=== PATIENT | female | born 1980 | race Caucasian/White ===

== ENCOUNTER 2021-05-30 06:09 | Day surgery (SDC) | payer SELFPAY ==
[2021-05-23 18:29] VITALS: BMI 35.4
[~2021-05-30 06:09] MED LIST: BACITRACIN 15 GM TUBE TOPICAL OINTMENT TP ONE; NITROGLYCERIN 2% OINTMENT - 1GM PACKET TD ONE; ceFAZolin SODIUM 1 GM VIAL IVPB ONE
[2021-05-30] MEDS ORDERED: EPINEPHrine/PF 1 MG/1 ML (1:1,000) AMPULE ONE (07:19)
[2021-05-30] MEDS ORDERED: MIDAZOLAM HCL 2 MG/2 ML SINGLE DOSE VIAL ONE (07:26)
[2021-05-30] MEDS ORDERED: fentaNYL CITRATE 250 MCG/5 ML VIAL ONE (07:26)
[2021-05-30] MEDS ORDERED: PROPOFOL 20 ML ONE (07:41)
[2021-05-30] MEDS ORDERED: HEPARIN NA (PORCINE) 5,000 UNITS/ML 1ML VIAL ONE (07:47)
[2021-05-30] MEDS ORDERED: BUPIVACAINE HCL/PF 0.25% (2.5MG/ML) 10 ML VIAL ONE (07:55)
[2021-05-30] MEDS ORDERED: BUPIVACAINE LIPOSOME/PF (EXPAREL) 266 MG/20 ML VIAL ONE (07:56)
[2021-05-30] MEDS ORDERED: ROCURONIUM BROMIDE 50 MG/5 ML SYRINGE ONE ×2 (08:05→09:01)
[2021-05-30] MEDS ORDERED: ceFAZolin SODIUM 1 GM VIAL IVPB ONE ×2 (08:10→12:10)
[2021-05-30] MEDS ORDERED: DEXAMETHASONE SOD PHOSPHATE 4 MG/1 ML VIAL ONE ×2 (08:45→08:46)
[2021-05-30] MEDS ORDERED: ONDANSETRON 4 MG/2 ML VIAL ONE ×2 (08:46)
[2021-05-30] MEDS ORDERED: HYDROmorphone HCL/PF 1 MG/ML VIAL ONE ×2 (09:02→11:19)
[2021-05-30] MEDS ORDERED: BUPIVACAINE LIPOSOME/PF (EXPAREL) 266 MG/20 ML VIAL NR ONE (09:31)
[2021-05-30] MEDS ORDERED: BUPIVACAINE HCL/PF 0.25% (2.5MG/ML) 10 ML VIAL IJ ONE (09:32)
[2021-05-30] MEDS ORDERED: ACETAMINOPHEN INJECTION 100 ML IVPB ONE (09:57)
[2021-05-30] MEDS ORDERED: GLYCOPYRROLATE 0.2 MG/1 ML VIAL ONE ×3 (10:08)
[2021-05-30] MEDS ORDERED: LIDOCAINE HCL 2% 100 MG/5 ML DISP.SYRIN ONE (10:09)
[2021-05-30] MEDS ORDERED: NEOSTIGMINE METHYLSULFATE 0.5 MG/1 ML - 10 ML MDV ONE (10:09)
[2021-05-30] MEDS ORDERED: EPINEPHrine 1:1,000 1,000 MCG/ML ML SQ ONE ×2 (11:01)
[2021-05-30] MEDS ORDERED: NITROGLYCERIN 2% OINTMENT - 1GM PACKET TD ONE ×3 (11:47→12:22)
[2021-05-30] MEDS ORDERED: BACITRACIN 15 GM TUBE TOPICAL OINTMENT ONE (11:48)
[2021-05-30] MEDS ORDERED: BACITRACIN 15 GM TUBE TOPICAL OINTMENT TP ONE (12:25)
[2021-05-30] MEDS ORDERED: morphine CARPU-JECT 2 MG/1 ML DISP.SYRIN IVPUSH PRN (13:06)
[2021-05-30] MEDS ORDERED: ONDANSETRON 4 MG/2 ML VIAL IVPUSH PRN (13:06)
[2021-05-30] MEDS ORDERED: oxyCODONE HCL 5 MG TABLET PO PRN (13:50)
[2021-05-30] MEDS ORDERED: ONDANSETRON 4 MG/2 ML VIAL IVPB PRN (13:50)
[2021-05-30] MEDS ORDERED: morphine SULFATE 4 MG/ML VIAL IVPUSH PRN (13:50)
[2021-05-30] MEDS ORDERED: ALBUTEROL SO4 HFA INHALER IH PRN (14:00)
[2021-05-30] MEDS ORDERED: LACTATED RINGERS SOLUTION 1,000 ML IV SCH (14:00)
[2021-05-30] MEDS ORDERED: ceFAZolin SODIUM 1 GM VIAL ONE ×2 (15:17→19:23)
[2021-05-30] MEDS ORDERED: DEXTROSE 5%-WATER - 50 ML IVPB ONE ×2 (15:17→19:23)
[2021-05-30] MEDS: CEFAZOLIN 1 GM in DEXTROSE 5%-WATER - 50 ML IVPB SCH ×2 (15:20→21:00)
[2021-05-31] MEDS: CEFAZOLIN 1 GM in DEXTROSE 5%-WATER - 50 ML IVPB SCH ×2 (03:00→08:27)
[2021-05-31] MEDS ORDERED: DEXTROSE 5%-WATER - 50 ML IVPB ONE ×2 (03:28→08:14)
[2021-05-31] MEDS ORDERED: ceFAZolin SODIUM 1 GM VIAL ONE ×2 (03:28→08:14)
[2021-05-31] MEDS ORDERED: ACETAMINOPHEN 500 MG TABLET (FP) PO ONE (07:30)
[2021-05-31] MEDS ORDERED: HEPARIN NA (PORCINE) 5,000 UNITS/ML 1ML VIAL SQ SCH (08:00)
[2021-05-31 08:17] VITALS: BP 106/66; PULSE 80; TEMP 98.5
== END 2021-05-31 12:57 | disposition home or self-care (01) ==
LOC: FASUSAT 06:09 → FASU 06:09 → FM/S 13:50 → FASUSAT 05-31 12:57
PROVIDERS: ATTEND Plastic Surgery
CPT/HCPCS: 81025; 94760; J0131; J1644